=== PATIENT | male | born 1930 | race Caucasian/White ===

== ENCOUNTER 2019-02-11 08:58 | Outpatient (CLI) | payer OTHER ==
--- NOTE | 2019-02-11 09:29 | RAD ---
Exam:3 views left knee HISTORY: Arthritis COMPARISON: None FINDINGS: Severe tricompartmental degenerative change. No joint effusion. No fracture. IMPRESSION: Severe tricompartmental degenerative change
== END 2019-02-11 08:59 | disposition home or self-care (01) ==
LOC: BICRAD 08:58
PROVIDERS: ATTEND Orthopaedic Surgery
DX: M17.12 Unilateral primary osteoarthritis, left knee (principal)